=== PATIENT | female | born 1990 | race Caucasian/White ===

== ENCOUNTER 2019-01-09 11:40 | Emergency (ER) | payer SELFPAY ==
[2019-01-09] MEDS ORDERED: Ibuprofen 600 MG TAB ONE (12:09)
--- NOTE | 2019-01-09 12:47 | RAD ---
Exam:3 views left ankle HISTORY: Trauma. Pain. COMPARISON: None FINDINGS: Lateral soft tissue swelling. No fracture. No cortical irregularity or periosteal reaction IMPRESSION: Lateral soft tissue swelling, without evidence of fracture
== END 2019-01-09 13:08 | disposition home or self-care (01) ==
LOC: SCSER 11:40
DX: S93.402A Sprain of unspecified ligament of left ankle, initial encounter (principal); X50.1XXA Overexertion from prolonged static or awkward postures, initial encounter